=== PATIENT | male | born 2000 | race African-American/Black ===

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

== ENCOUNTER → 2020-02-06 | Emergency (ER) | payer SELFPAY | LOC: BURERS 08:37 | DX: R36.9 Urethral discharge, unspecified (principal); D57.00 Hb-SS disease with crisis, unspecified | CPT/HCPCS: 99281 ==

== ENCOUNTER 2025-02-20 01:49 | Emergency (ER) | payer SELFPAY | END 2025-02-20 02:21 | LOC: BURERS 01:49 | DX: H60.91 Unspecified otitis externa, right ear (principal); H61.21 Impacted cerumen, right ear | CPT/HCPCS: 99282 ==